=== PATIENT | female | born 1960 | race Caucasian/White ===

== ENCOUNTER → 2019-06-06 | Outpatient (CLI) | payer OTHER ==
[~2019-06-06] MED LIST: DOCU100 PO; LORA.5 PO; MIRALAX17 GM PO; Percocet 5-3251 EACH PO; VENL150ER PO
[2019-06-08 16:06] LABS: HPV 16 Negative (Negative); HPV 18 Negative (Negative); HPV OTHER HR TYPES Negative (Negative)
== END ==
LOC: LAB SHORT 14:31 → LAB 14:31
PROVIDERS: Nurse Practitioner Family
DX: Z12.4 Encounter for screening for malignant neoplasm of cervix (principal)
CPT/HCPCS: 87070; 87205; 87624; G0145

== ENCOUNTER 2019-07-04 17:11 | Observation (INO) | payer OTHER ==
[~2019-07-04] VITALS: Ht 167.6 cm; Wt 89.0 kg
[~2019-07-04 17:11] MED LIST changes: -DOCU100 PO; -MIRALAX17 GM PO; -Percocet 5-3251 EACH PO
[2019-07-04] MEDS ORDERED: VENL150ER PO (18:44)
[2019-07-04 20:40] LABS: BASOPHILS ABSOLUTE AUTO 0.04 K/mm3 (0.00-0.23); BASOPHILS PERCENT AUTO 0 % (0-2); EOSINOPHILS ABSOLUTE AUTO 0.04 K/mm3 (0.00-0.68); EOSINOPHILS PERCENT AUTO 0 % (0-6); Hematocrit 48.3 % (33.0-51.0); Hemoglobin 15.8 g/dL (11.5-16.0); IMMATURE GRAN ABSOLUTE AUTO 0.07 K/mm3 (0.00-0.10); IMMATURE GRAN PERCENT AUTO 1 % (0-1); LYMPHOCYTES ABSOLUTE AUTO 1.41 K/mm3 (0.84-5.20); LYMPHOCYTES PERCENT AUTO 10 % (21-46); MONOCYTES ABSOLUTE AUTO 0.71 K/mm3 (0.16-1.47); MONOCYTES PERCENT AUTO 5 % (4-13); Mean Corpuscular HGB 31.1 pg (26.0-34.0); Mean Corpuscular HGB Conc 32.7 g/dL (31.5-36.5); Mean Corpuscular Volume 95 fL (80-100); Mean Platelet Volume 9.4 fL (9.1-12.4); NEUTROPHILS ABSOLUTE AUTO 12.14 K/mm3 (1.96-9.15); NEUTROPHILS PERCENT AUTO 84 % (41-73); Platelet Count 370 K/mm3 (150-400); RDW Coefficient Variation 12.7 % (11.7-14.2); RDW Standard Deviation 44.7 fL (35.1-46.3); Red Blood Cell Count 5.08 M/mm3 (3.80-5.20); White Blood Cell Count 14.41 K/mm3 (4.00-11.30)
[2019-07-04 20:57] LABS: Alanine Aminotransfer (ALT/SGP 41 U/L (12-78); Albumin, Blood 3.8 g/dL (3.4-5.0); Albumin/Globulin Ratio 0.8 (0.8-1.8); Alk Phos 114 U/L (50-136); Anion Gap 9 mmol/L (6-16); Aspartate Aminotrans (AST/SGOT 35 U/L (12-37); Bilirubin, Total 0.3 mg/dL (0.1-1.0); Blood Urea Nitrogen 17 mg/dL (8-24); Bun/Creatinine Ratio 30.8 (12.0-20.0); CO2, Blood 25 mmol/L (21-32); Calcium, Blood 9.6 mg/dL (8.5-10.1); Chloride, Blood 106 mmol/L (98-108); Creatinine, Blood 0.55 mg/dL (0.40-1.00); Globulin, Blood 4.6 g/dL (2.2-4.0); Glomerular Filtration Rate >60 (60-); Glucose, Blood 113 mg/dL (70-99); Potassium, Blood 4.2 mmol/L (3.5-5.5); Sodium, Blood 140 mmol/L (136-145); Total Protein, Blood 8.4 g/dL (6.4-8.2)
[2019-07-04 21:16] LABS: International Normalized Ratio 0.97; Prothrombin Time Results 10.4 Sec (9.7-11.5)
--- NOTE | 2019-07-05 07:29 | NUR ---
PT NEW ADMIT THIS SHIFT FOR RIGHT TIBIA FX. PT VSS, PEDAL PULSES STRONG, CAP REFIL, PT DENIED N/T. IMMOBILIZER IN PLACE. PT REP PAIN DIANNE, DECLINED NEED FOR PAIN MEDS. ALEMAN PATANT DRNG CLEAR YELLOW URINE. PT NPO FOR PLAN FOR OR TODAY.
--- NOTE | 2019-07-05 11:22 | NUR ---
BLOOD CONSENT PATIENT SIGNED BLOOD TRANSFUSION REFUSAL AND RELEASE. NOTIFIED JOSEFINA VU RN DAY SURGERY OF PATIENT SIGNING REFUSAL AND RELEASE
--- NOTE | 2019-07-05 17:45 | NUR ---
SUMMARY PT STATES PAIN WELL CONTROLLED AFTER PO MEDS. PT IS ANTICIPATING DISCHARGE TO HOME TOMORROW. PATIENT FEELS THAT SHE HAS ADEQUATE HELP AT HOME AND FAMILY HAS OBTAINED A WHEELCHAIR AND IS WORKING ON GETTING A WALKER AND COMMODE.
--- NOTE | 2019-07-06 04:06 | NUR ---
SHIFT SUMMARY PT AA0X4 VSS. IMMOBILIZER IN PLACE. [place] [facility] [place]. SHE FOLLOWS PRECAUTIONS WELL. VOIDING, TOLERATING PO. PLAN TO DISCHARGE HOME TOMORROW FOR FOLLOW UP WITH ORTHO. MEDICATED FOR PAIN X 2 DURING SHIFT WITH 1 PERCOCET EACH TIME.
[2019-07-06] MEDS ORDERED: Percocet 5-3251 EACH PO (15:34)
[2019-07-06] MEDS ORDERED: DOCU100 PO (15:34)
[2019-07-06] MEDS ORDERED: MIRALAX17 GM PO (15:35)
--- NOTE | 2019-07-06 17:04 | NUR ---
DISCHARGE: PACKET PRINTED AND PT EDUCATED. PT LEFT WITH IMMOBILIZER IN PLACE. SCRIPTS SENT WITH PT. PT LEFT UNIT VIA WHEELCHAIR WITH DYLON, [employer] SPECIAL EDUCATION TEACHER AND FAMILY AT 1640.
== END 2019-07-06 17:04 | disposition home or self-care (01) ==
LOC: ER 17:11 → SURS 17:12 → ER 22:37 → SURS 07-05 00:15
PROVIDERS: Physician Assistant; ADMIT Internal Medicine
DX: S82.154A Nondisplaced fracture of right tibial tuberosity, initial encounter for closed fracture (principal); I10 Essential (primary) hypertension; F32.9 Major depressive disorder, single episode, unspecified; F41.0 Panic disorder [episodic paroxysmal anxiety]; E66.9 Obesity, unspecified; Z68.31 Body mass index [BMI] 31.0-31.9, adult; Z91.011 Allergy to milk products; Z91.018 Allergy to other foods; Z79.899 Other long term (current) drug therapy; W01.0XXA Fall on same level from slipping, tripping and stumbling without subsequent striking against object, initial encounter
CPT/HCPCS: 29505; 36415; 51702; 73562-RT; 73700; 80053; 85025; 85610; 85730; 96374-59; 96375-59; 96376; 97116; 97162; 97166; 97530; 97535; 99285-25; A9270-GY; G0378; J1170; J1885

== ENCOUNTER 2020-02-20 09:02 | Day surgery (SDC) | payer OTHER ==
[~2020-02-20] VITALS: Ht 165.1 cm; Wt 89.6 kg
[~2020-02-20 09:02] MED LIST changes: +DOCU100 PO; +MIRALAX17 GM PO; +Percocet 5-3251 EACH PO
[2020-02-20] MEDS ORDERED: VENL37.5 PO (09:59)
== END 2020-02-20 13:51 | disposition home or self-care (01) ==
LOC: ORSCSDS 09:02
PROVIDERS: Orthopaedic Surgery
PROC: 0QSG04Z Reposition Right Tibia with Internal Fixation Device, Open Approach (ICD-10-PCS; principal; 2020-02-20 10:15)
DX: S82.15 Fracture of tibial tuberosity (principal); K21.9 Gastro-esophageal reflux disease without esophagitis; Z79.899 Other long term (current) drug therapy; E66.9 Obesity, unspecified; Z68.32 Body mass index [BMI] 32.0-32.9, adult
CPT/HCPCS: A9270-GY; C1713; J0690; J1100; J2250; J2405; J2704; J2765; J2795; J3010; J7120